=== PATIENT | male | born 1950 | race African-American/Black ===

== ENCOUNTER 2020-03-29 00:16 | Emergency (ER) | payer MEDICARE, MEDICAID ==
[~2020-03-29] VITALS: Ht 172.7 cm; Wt 78.0 kg
[2020-03-29] MEDS ORDERED: DEXAMETHASONE 4MG TABLET PO ONE (02:30)
[2020-03-29 04:10] VITALS: BP 135/88
== END 2020-03-29 05:46 | disposition home or self-care (01) ==
LOC: EDBD 01:53 → ER 01:53
DX: J44.9 Chronic obstructive pulmonary disease, unspecified (principal); I10 Essential (primary) hypertension; F03.90 Unspecified dementia, unspecified severity, without behavioral disturbance, psychotic disturbance, mood disturbance, and anxiety; Z59.0 Homelessness
CPT/HCPCS: 71045; 93005; 99283; J8540

== ENCOUNTER 2020-03-29 07:27 | Emergency (ER) | payer MEDICARE, MEDICAID ==
[~2020-03-29] VITALS: Ht 175.3 cm; Wt 82.0 kg
[2020-03-29 12:13] VITALS: BP 136/88
== END 2020-03-29 12:16 | disposition home or self-care (01) ==
LOC: ER 07:27
DX: J44.9 Chronic obstructive pulmonary disease, unspecified (principal); R91.1 Solitary pulmonary nodule; I10 Essential (primary) hypertension; Z99.81 Dependence on supplemental oxygen
CPT/HCPCS: 71045; 93005; 99283